=== PATIENT | female | born 1985 | race Caucasian/White ===

== ENCOUNTER 2017-08-20 06:38 | Emergency (ER) | payer BC ==
[~2017-08-20 06:38] MED LIST: IBUP800T37 PO; LOR5/325 PO; PREN1TAB50
[2017-08-20] MEDS ORDERED: LACT1CAP6 PO (06:48)
--- NOTE | 2017-08-20 06:50 | ER Report ---
History and Physical Time Seen By MD: 06:49 Hx. of Stated Complaint: patient has had a sore throat since friday, she was seen at urgent care on friday and friday, originally started on amoxicillin, then switched to augmentin. patient states hasn't gotten any better, she has severe pain, can't swollow. patient also has right ear pain that has been going on for same amount of time. HPI/ROS CHIEF COMPLAINT: Sore throat HISTORY OF PRESENT ILLNESS: Patient is a 31-year-old female here with complaints of sore throat since Friday. She was treated with amoxicillin initially for presumed strep throat and switched to Augmentin on Friday. She reports worsening symptoms of odynophagia and difficulty swallowing with right neck fullness sensation. She also complains of right ear pain. Denies headache, blurred vision, difficulty breathing, chest pain. She has been alternating Tylenol and ibuprofen without significant relief of symptoms. Patient is afebrile at time of evaluation, hemodynamically stable. REVIEW OF SYSTEMS: ENT: + sore throat, right neck fullness Respiratory: No cough, no dyspnea. Cardiovascular: No chest pain, no palpitations. Gastrointestinal: No vomiting, no abdominal pain. Musculoskeletal: No back pain. Allergies: Coded Allergies: No Known Allergies (Verified Allergy, Unknown, 07/14/16) Home Meds Reported Medications Lactobacillus Combination No.4 (PROBIOTIC) 1 Each Capsule, 1 EACH PO QDAY, CAPSULE 08/20/17 Discontinued Reported Medications Vit #76/Iron,Carb/FA (Pnv 29-1 Tablet) 1 Each Tablet, 1 DAILY 07/15/16 Discontinued Scripts Ibuprofen (IBUPROFEN) 800 Mg Tablet, 800 MG PO Q8H@0000,0800,1600, #30 TAB 0 Refills Prov:SUKHI ALEJANDRO DO 07/16/16 Hydrocodone Bit/Acetaminophen (HYDROCODON-ACETAMINOPHEN 5-325) 1 Each Tablet, 1- 2 EACH PO Q4H Y for PAIN, #30 TAB 0 Refills Prov:SUKHI ALEJANDRO DO 07/16/16 Hx Smoking: No Smoking Status: Never Smoker Exposure to Second Hand Smoke?: No Constitutional Vital Sign - Last 24 Hours 08/20/17 06:41 Temp 97.8 Pulse 79 Resp 16 B/P (MAP) 125/85 Pulse Ox 95 O2 Delivery Room Air Physical Exam General Appearance: The patient is alert, has no immediate need for airway protection and no current signs of toxicity. Mild distress secondary to pain Eyes: Pupils equal and round no injection. ENT: + fullness, erythema of the right peritonsillar area, + tender cervical adenopathy of the right neck Respiratory: Chest is non tender, lungs are clear to auscultation. Cardiac: regular rate and rhythm Gastrointestinal: Abdomen is soft and non tender, no masses, bowel sounds normal. Musculoskeletal: Neck: Neck is supple and non tender. Extremities have full range of motion and are non tender. Skin: No rashes or lesions. 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 Sagittal and coronal reformatted images were generated. 75 mL of IV Isovue-370 injected. One of the following dose optimization techniques was utilized in the performance of this exam: automated exposure control; adjustment of the mA and/ or kV according to patient size; or use of iterative reconstruction technique. Specific details can be referenced in the facility's radiology CT exam operational policy. COMPARISON: None. FINDINGS: Parotid/submandibular and thyroid glands: Normal. Pharyngeal and retropharyngeal soft tissues: Right peritonsillar abscess is positioned posterior to the right tonsillar pillar and measures 2.3 x 1.4 cm transverse by 4.2 cm craniocaudad. This extends into the right-sided hypopharynx mucosa partially effacing the right side of the hypopharynx airway. Oral cavity and geriatric care manager space soft tissues: Normal. Larynx/glottis and airway: Normal. Lymph nodes: Normal. Vessels: No significant finding. Visualized orbits / brain: No significant finding. Upper chest: Normal. Bones/sinuses/mastoid air cells: Normal. IMPRESSION: Right peritonsillar abscess measures 2.3 x 1.4 x 4.2 cm. This abscess partially effaces the hypopharynx airway. ED Course/Re-evaluation ED Course Patient is a 31-year-old female here with complaints of odynophagia, sore throat , difficulty swallowing since Friday which is been progressively worsening in spite of being on antimicrobial coverage initially with amoxicillin and Augmentin. Patient has been alternating ibuprofen and Tylenol without significant relief of symptoms. CT scan was completed and to rule out retropharyngeal abscess, peritonsillar abscess. 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 I discussed the patient with ENT (Dr. Ayala) at [place] regarding the patient's diagnosis and need for abscess drainage. Patient was accepted for Last oral intake was at approximately 1830 last night. [place] test negative. Strep test deferred since this would not change treatment course and imaging results. 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 Patient voiced understanding and opted for personal vehicle transfer. Patient was given IV Clindamycin and IV decadron 10 mg prior to transfer. Patient remained afebrile and HD stable throughout course in the ED. Decision to Disposition Date: August 20, 2017 Decision to Disposition Time: 08:38 Depart Departure Latest Vital Signs Vital Signs Date Time Temp Pulse Resp B/P (MAP) Pulse Ox O2 Delivery O2 Flow Rate FiO2 08/20/17 06:41 97.8 79 16 125/85 95 Room Air Impression: Primary Impression: Peritonsillar abscess Condition: Condition Unchanged Disposition: XFER TO [facility] (Transfer to [place] for ENT evaluation) ERIN DAVID DO August 20, 2017 06:50
[2017-08-20] MEDS ORDERED: DEXAMETHASONE SOD PHOS 10MG/ML IVP ONE (07:00)
[2017-08-20] MEDS ORDERED: IOPAMIDOL 76% 75 ML INFUS BTL 75 ML ONE (07:23)
--- NOTE | 2017-08-20 07:52 | RADIOLOGY IMAGING REPORT ---
FACILITY: [facility] PATIENT NAME: Marilou Rodríguez : 1985 MR: [id number] V: [id number] EXAM DATE: ORDERING PHYSICIAN: ERIN DAVID TECHNOLOGIST: Location: [facility] Patient: Marilou Rodríguez : 1985 Visit/Account:[id number] Date of Sevice: 08/20/2017 EXAMINATION: CT neck with IV contrast HISTORY: Odynophagia, rule out abscess TECHNIQUE: CT was obtained through the neck following IV contrast administration. Sagittal and co cameron reformatted images were generated. 75 mL of IV Isovue-370 injected. One of the following dose optimization techniques was utilized in the performance of this exam: autom ated exposure control; adjustment of the mA and/or kV according to patient size; or use of iterative reconstruction technique. Specific details can be referenced in the facility's radiology CT exam ope rational policy. COMPARISON: None. FINDINGS: Parotid/submandibular and thyroid glands: Normal. Pharyngeal and retropharyngeal soft tissues: Right peritonsillar abscess is positioned posterior to t he right tonsillar pillar and measures 2.3 x 1.4 cm transverse by 4.2 cm craniocaudad. This extends i nto the right-sided hypopharynx mucosa partially effacing the right side of the hypopharynx airway. Oral cavity and cardiac technician space soft tissues: Normal. Larynx/glottis and airway: Normal. Lymph nodes: Normal. Vessels: No significant finding. Visualized orbits / brain: No significant finding. Upper chest: Normal. Bones/sinuses/mastoid air cells: Normal. IMPRESSION: Right peritonsillar abscess measures 2.3 x 1.4 x 4.2 cm. This abscess partially effaces the hypophary nx airway. Report Dictated By: Buster Segovia MD at 08/20/2017 7:41 AM Report E-Signed By: Buster Segovia MD at 08/20/2017 7:48 AM WSN:[id number]
[2017-08-20] MEDS ORDERED: CLINDAMYCIN(*) 600 MG/NS 50 ML 50 ML IVPB ONE (08:05)
[2017-08-20 08:44] VITALS: BP 112/67
== END 2017-08-20 09:00 | disposition short-term general hospital (02) ==
LOC: ER 06:51
DX: J36 Peritonsillar abscess (principal)
CPT/HCPCS: 70491; 86308; 96365; 96375; 99284; J1100; J3490; Q9967

== ENCOUNTER → 2018-04-22 | Outpatient (REF) | payer BC ==
[~2018-04-22] MED LIST changes: +FLU60VIA41 IM; +LACT1CAP6 PO; +RHO(150015 IM
== END ==
PROVIDERS: ATTEND Nurse Practitioner Family
DX: R19.7 Diarrhea, unspecified (principal)
CPT/HCPCS: 82274; 83630; 87045; 87177; 87324; 87449